=== PATIENT | female | born 1965 | race Caucasian/White ===

== ENCOUNTER → 2020-12-03 | Outpatient (CLI) | payer MEDICARE, OTHER | LOC: KOH-I 14:54 | DX: M79.672 Pain in left foot (principal); M79.671 Pain in right foot; M25.572 Pain in left ankle and joints of left foot; M25.571 Pain in right ankle and joints of right foot | CPT/HCPCS: 73610; 73630 ==

== ENCOUNTER → 2021-02-13 | Outpatient (CLI) | payer MEDICARE, OTHER | LOC: KOH-I 13:41 | DX: M25.572 Pain in left ankle and joints of left foot (principal); M79.672 Pain in left foot | CPT/HCPCS: 73610; 73630 ==

== ENCOUNTER → 2022-07-15 | Outpatient (CLI) | payer MEDICARE, OTHER | LOC: EXRD 11:39 | DX: R06.02 Shortness of breath (principal) | CPT/HCPCS: 71046 ==

== ENCOUNTER → 2022-07-24 | Outpatient (CLI) | payer MEDICARE, OTHER | LOC: HEART 5 09:34 | DX: R06.02 Shortness of breath (principal) | CPT/HCPCS: 94010 ==